=== PATIENT | female | born 1995 | race Caucasian/White ===

== ENCOUNTER 2016-10-21 05:54 | Emergency (ER) | payer BC ==
[~2016-10-21] VITALS: Ht 172.7 cm; Wt 51.7 kg
--- NOTE | 2016-10-21 06:11 | NUR ---
HOME MEDS PT DENIES ANY HOME MEDS ON A DAILY BASIS
--- NOTE | 2016-10-21 06:30 | NUR ---
received report assumed care of patient
[2016-10-21] MEDS ORDERED: TORADOL IV STA (06:34)
[2016-10-21] MEDS ORDERED: TORADOL ONE (06:37)
[2016-10-21] MEDS ORDERED: NS 1000ML 1,000 ML ONE (06:37)
--- NOTE | 2016-10-21 06:38 | ER.PDOC ---
General Chief Complaint: Abdomen Pain Stated Complaint: R SIDE & PELVIC PAIN Time seen by MD: 06:23 Source: patient History of Present Illness Initial Comments onset last pm 1800 hous seen [facility] w/u included Ct scan US labs dilaudid d/c couple hrs ago c/o RUQ RLQ pain Severity/Quality: mild Radiation: RUQ, RLQ, flank, groin Associated Symptoms: nausea/vomiting Exacerbated by: movements, nothing Allergies: Coded Allergies: Penicillins (Verified Allergy, Unknown, Hives, 10/21/16) amoxicillin (Verified Allergy, Unknown, 10/21/16) clavulanic acid (Verified Allergy, Unknown, 10/21/16) tramadol (Verified Allergy, Unknown, 10/21/16) Vital Signs First Vital Signs Date Time Temp Pulse Resp B/P (MAP) Pulse Ox O2 Delivery O2 Flow Rate FiO2 10/21/16 05:59 98.2 81 20 100 10/21/16 06:07 145/65 (91) Last Vital Signs Date Time Temp Pulse Resp B/P (MAP) Pulse Ox O2 Delivery O2 Flow Rate FiO2 10/21/16 06:07 98.2 81 20 145/65 (91) 100 Past Medical History Surgical History: tonsillectomy LMP (females 10-50): 1 month Family History Significant Family History: no pertinent family hx Social History Smoking: non-smoker Alcohol Use: none Drug Use: none Constitutional: denies fever EENTM: denies double vision Respiratory: denies cough Cardiovascular: denies chest pain Gastrointestinal: abdominal pain Genitourinary: denies urgency Musculoskeletal: denies neck pain Skin: denies rash Psychiatric/Neurological: anxiety All Other Systems: Reviewed and Negative Physical Exam General Appearance: Anxious, Mild Distress HEENT: PERRL/EOMI, Normal ENT Inspection, TMs Normal, Pharynx Normal Neck: Non-Tender, Full Range of Motion, Supple, Normal Inspection Respiratory: chest non-tender, lungs clear, normal breath sounds, no respiratory distress, no accessory muscle use Cardiovascular: Normal Peripheral Pulses, Regular Rate, Rhythm, No Edema, No Gallop, No JVD, No Murmur Gastrointestinal: No Pulsatile Mass, Tenderness Back: Normal Inspection, No CVA Tenderness, No Vertebral Tenderness Extremities: Normal Range of Motion, Non-Tender, Normal Inspection, No Pedal Edema, No Calf Tenderness, Normal Capillary Refill, Pelvis Stable Neurologic/Psychiatric: financial sales consultant II-XII NML as Tested, No Motor/Sensory Deficits, Alert, Normal Mood/Affect, Oriented x 3 Skin: Normal Color, Warm/Dry Lymphatic: No Adenopathy Progress Progress awaiting ed record from [facility] signed out at 0700hrs Course Blood Pressure Systolic: 145 Blood Pressure Diastolic: 65 Blood Pressure Mean: 91 Departure Time of Disposition: 07:00 Disposition: 30 STILL A PATIENT Impression: Primary Impression: Abdominal pain Referrals: PCP,UNKNOWN (PCP) PRIMARY CARE PROVIDER [address] MD Oct 21, 2016 06:38
[2016-10-21 06:48] LABS: BASOPHIL % 0.1 % (0.0-0.2); EOSINOPHIL % 0.2 % (0.0-5.0); HEMOGLOBIN 13.8 g/dL (12.0-15.0); LYMPHOCYTES # 1.4 10^3/uL (1.0-4.8); LYMPHOCYTES % 9.5 % (24.0-44.0); MEAN CELL HGB 30.3 pg (26-34); MEAN CELL HGB CONCENTRATION 33.7 g/dL (33-37); MEAN CORP VOLUME 89.9 fL (78-100); MEAN PLATELET VOLUME 10.1 fL (7.8-11.0); MONOCYTES # 1.2 10^3/uL (0.3-0.8); MONOCYTES % 7.9 % (5.0-12.0); NEUTROPHIL # 12.2 10^3/uL (1.8-7.7); PLATELET COUNT 215 10^3/uL (150-400); WHITE BLOOD CELL 14.9 10^3/uL (4.5-11.0)
[2016-10-21] MEDS ORDERED: NS 1000ML 1,000 ML IV ONE (07:00)
[2016-10-21 07:04] LABS: CALCIUM 9.1 mg/dL (8.4-10.5); CARBON DIOXIDE 26.3 mmol/L (20.0-32)
[2016-10-21 07:09] LABS: LYMPHOCYTE 6 % (25-36); MONOCYTE 8 % (3-9); SEGMENTED NEUTROPHILS 86 % (31-76)
--- NOTE | 2016-10-21 07:25 | NUR ---
Radiology Dr. Santos on phone with Kavya from Radiology
--- NOTE | 2016-10-21 09:00 | DIREP ---
PROCEDURE:CT ABDOMEN/PELVIS W/O CONTRAST COMPARISON:[facility] CT abdomen/pelvis with IV contrast 10/20/2016. INDICATIONS:RLQ pain TECHNIQUE:Axial images were created through the abdomen and pelvis without intravenous contrast material. Oral contrast was administered. Sagittal and coronal reconstructions were performed from source images. FINDINGS: LUNG BASES:Normal. No visible pulmonary or pleural disease. LIVER:Normal. No significant liver lesions are identified. BILIARY:Normal. No visible dilatation or calcification. PANCREAS:Normal. No lesion, fluid collection, ductal dilatation, or atrophy. SPLEEN:Normal. No enlargement or focal lesion. ADRENALS:Normal. No mass or enlargement. URINARY TRACT:Simple renal cysts. No hydronephrosis. No visible stones. AORTA/VASCULAR:Normal. No aneurysm. RETROPERITONEUM:Normal. No mass or adenopathy. BOWEL/MESENTERY:Visualized portions of the appendix are normal. No pericecal inflammatory change. No obstruction. No free fluid or free air. ABDOMINAL WALL:Normal. No mass or hernia. PELVIC ORGANS:Normal. No visible mass. Pelvic organs appropriate for patient age. BONES:Normal for age. No bony lesion or acute fracture. OTHER:Negative. CONCLUSION: 1. No kidney stones, ureteral stones or hydronephrosis. 2. Visualized portions of the appendix are normal without pericecal inflammatory change. Dictated by: Jared Blank M.D. on 10/21/2016 at 08:53 AM
[2016-10-21 09:43] VITALS: BP 145/65
== END 2016-10-21 09:45 | disposition home or self-care (01) ==
LOC: ER 05:54
DX: R10.11 Right upper quadrant pain (principal); R10.31 Right lower quadrant pain; F41.9 Anxiety disorder, unspecified; Z88.0 Allergy status to penicillin; Z88.1 Allergy status to other antibiotic agents; Z88.8 Allergy status to other drugs, medicaments and biological substances
CPT/HCPCS: 36415; 74176; 80053; 82150; 83690; 85007; 85025; 96361; 96374; 99285; J1885; J7030; Q9963